=== PATIENT | female | born 2005 ===

== ENCOUNTER 2025-04-22 18:01 | Emergency (ER) | payer MEDICAID, SELFPAY ==
[2025-04-22 18:10] VITALS: BP 117/64; PULSE 61; RESP 18; TEMP 36.8; O2SAT 98; BMI 20.3
--- NOTE | 2025-04-22 18:26 | CRLHL7_ITS ---
For Patients: As a result of the Century Cures Act, medical imaging exams and procedure reports are released immediately into your electronic medical record. You may view this report before your referring provider. If you have questions, please contact your health care provider. Indication: Abdominal pain, constipation. Technique: Abdomen 3 view. Comparison: None. Findings/Impression: Bowel: Mild gaseous distention of the colon. No small bowel obstruction. Mild colonic stool burden most pronounced in the rectum. Soft tissues: No sign of free air. No sign of soft tissue mass. No suspicious calcifications. Bones: Unremarkable for age. Dictated by López Jimenez MD @ 04/22/2025 7:04:49 PM (Electronically Signed)
--- NOTE | 2025-04-22 18:30 | ED_ITS ---
HPI - Abdominal Pain General Date Seen: 04/22/25 Chief Complaint: Abdominal Pain Stated Complaint: stomach pain Time Seen by Provider: 04/22/25 18:04 Source: patient, family, RN notes reviewed and old records reviewed Mode of arrival: ambulatory Limitations: no limitations History of Present Illness HPI narrative: Patient is a very nice 19-year-old female who presents here with abdominal pain she has been struggling of abdominal pain on off the last 2 years, been evaluated at least 5 times down at the [place] [facility], along with other visits with her primary care physician. She has seen [facility] and had upper endoscopy. It has been told her that she may have irritable bowel syndrome, but she does does not think that is what is going on. She describes abdominal pain that comes and goes mostly when she walks around she currently in the emergency room does not have any abdominal pain at all. She describes also constipation associated with this and how a hard time passing stools in them being hard, she occasionally will use MiraLax for this. Does not have any blood in her stools, denies any nausea vomiting. There is no complaints of painful eating, or having worse pain with eating, she has not lost any weight there is no fevers chills, sweats, no personal history of malignancy, there is no relation to her periods, she has never had sexual intercourse, tells me there is no chance she can be . Further she has no history of dysuria but has of frequency urination. She does drink a lot a water. Pain is all over her abdomen, but characteristically more in the upper than the lower. She has tried Protonix proton pump inhibitors in the past with no improvement she does remember she has tried Levsin. She does use occasional MiraLax. I am able to review her workup in [facility]. Related Data Patient : No Previous Rx's ?Medication ?Instructions ?Recorded hyoscyamine sulfate 0.125 mg 0.125 mg PO BID-QID PRN d yspepsia 04/22/25 tablet (Levsin) #60 tabs Allergies Allergy/AdvReac Type Severity Reaction Status Date / Time No Known Drug Allergies Allergy Verified 04/22/25 18:13 Review of Systems Status of ROS Reports: 10 or more systems reviewed and unremarkable except as noted in History and below PFSH PFSH Social History Smoking Status: Never smoker Do you use any of these nicotine containing products: None Second hand tobacco smoke exposure: No How often do you have a drink containing alcohol: never How often do you have six or more drinks on one occasion: Never AUDIT-C Alcohol total score: 0 Non-prescribed substance use: denies use service: No Exam Narrative: Exam Narrative: On examination in room 2 she is pleasant alert she speaks excellent [place]. Her mother is with her, who speaks no [place]. I initially came in the room and they were praying. Pupils are equal round reactive to light there is no scleral icterus redness TMs are normal oropharynx normal her neck is supple full range of motion chest is clear bilaterally no wheezing crackles noted heart sounds are normal, her abdomen is soft and scaphoid there is no guarding no organomegaly bowel sounds are normal there is no tenderness to palpation she moves all extremities independently and well. Did not remove her clothing as she asked me not to. A adolescent psychiatrist was present, my nurse Sobia. Const: Vital Signs, click to edit/add: Vital Signs - 24 hr 04/22/25 18:10 Temperature 98.3 F Pulse Rate [Pulse Oximeter] 61 Respiratory Rate 18 Blood Pressure [Ri ght Upper Arm] 117/64 Pulse Oximetry 98 Oxygen Delivery Me thod Room Air Course Course ED Course: I reviewed with the patient her x-ray, lot a gas and constipation low down, no other worrisome findings, her urinalysis was benign test negative. That he be reasonable discharge her home, use MiraLax every day, follow-up with primary care consider using the Levsin which I prescribed for her, I explained to her that this is the chronic problem. Follow-up with primary care. Vital Signs Vital signs: Initial Vital Signs Temperature 98.3 F 04/22/25 18:10 Temperature Source Temporal Artery Scan 04/22/25 18:10 Pulse Rate 61 04/22/25 18:10 Pulse Rhythm Regular 04/22/25 18:10 Respiratory Rate 18 04/22/25 18:10 Blood Pressure 117/64 04/22/25 18:10 Blood Pressure Mean 81 04/22/25 18:10 Blood Pressure Position Sitting 04/22/25 18:10 Pulse Oximetry 98 04/22/25 18:10 Oxygen Delivery Method Room Air 04/22/25 18:10 Vital Signs Temperature 98.3 F 04/22/25 18:10 Pulse Rate 61 04/22/25 18:10 Respiratory Rate 18 04/22/25 18:10 Blood Pressure 117/64 04/22/25 18:10 Pulse Oximetry 98 04/22/25 18:10 Oxygen Delivery Method Room Air 04/22/25 18:10 Temperature 98.3 F 04/22/25 18:10 Pulse Rate 61 04/22/25 18:10 Respiratory Rate 18 04/22/25 18:10 Blood Pressure 117/64 04/22/25 18:10 Pulse Oximetry 98 04/22/25 18:10 Oxygen Delivery Method Room Air 04/22/25 18:10 MDM - Abdominal Pain MDM Narrative Medical decision making narrative: During the evaluation of this patient I considered multiple differential diagnosis including life-threatening differentials which are appendicitis, aortic aneurysm, mesenteric ischemia, bowel perforation, ectopic , volvulus and bowel obstruction, other differential diagnosis include but are not limited to inflammatory bowel disease, cholecystitis, pancreatitis, hepatitis, gastritis, GERD, diverticulitis, peptic ulcer disease, pyelonephritis/UTI, renal colic/stone, pelvic inflammatory disease, cervicitis, endometritis, intrauterine , dysfunctional uterine bleeding, ovarian cyst/torsion, spontaneous as well as other etiologies Medical Records Attestation: I reviewed the patient's medical records. Medical records narrative: I have read workup in the [facility], she has had upper endoscopy, she has had CT scans, ultrasounds, multiple x-rays, and multiple labs out of all been negative. Lab Data Labs: Lab Results 04/22/25 Range/Units 18:26 Urine Color Yellow (Yellow) Urine Appearance Clear (Clear) Urine pH 5.5 (5.0-8.5) Ur Specific [place] >= 1.030 (1.000-1.030) Urine Protein Trace A (Negative) Urine Glucose (UA) Negative (Negative) Urine Ketones 2+ A (Negative) Urine Blood Negative (Negative) Urine Nitrite Negative (Negative) Urine Bilirubin Negative (Negative) Urine Urobilinogen 0.2 (0.2-1.0) Ur Leukocyte Esterase Negative (Negative) Urine RBC 0-2 (0-2) Urine WBC 0-2 (0-5) Ur Squamous Epith Cells None (None-Few) Urine Bacteria None (None) Urine HCG, Qual Negative (Negative) Imaging Data Flat and upright abdominal for: Attestation: I have reviewed the pertinent imaging results. My impression: No acute findings lot a gas, constipation Discharge Plan Discharge Clinical Impression: Constipation, Irritable bowel syndrome (IBS) Patient Disposition: Home w/ Parent or Adult Instructions: Constipation (DC), Chronic Abdominal Pain (DC) Additional Instructions: Home rest, follow-up with primary care for ongoing signs symptoms, you have a lot a gas on your x-ray, and signs of constipation. MiraLax will help this. I did give a prescription for Levsin. Take this b.i.d. this helps the cramping. Activity Level: Light activity Discharge Diet: Regular Prescriptions: New hyoscyamine sulfate [Levsin] 0.125 mg tablet 0.125 mg PO BID-QID PRN (Reason: dyspepsia) Qty: 60 0RF Follow Up/Referrals: Provider,Not a Local [Primary Care Provider, Family Practice] Stand Alone Forms: WriteLatex Info Instructions
[2025-04-22 18:38] LABS: Appearance Urine Clear (Clear)
[2025-04-22 18:40] LABS: Ur HCG Qualitative* Negative (Negative)
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
== END 2025-04-22 19:09 | disposition home or self-care (01) ==
PROVIDERS: Emergency Provider Family Medicine
DX: K58.1 Irritable bowel syndrome with constipation (principal)
CPT/HCPCS: 74019; 81001; 81025; 99283; 99284

== ENCOUNTER 2025-06-22 19:54 | Emergency (ER) | payer MEDICAID, SELFPAY ==
--- OUTSIDE RECORDS SUMMARY | 2025-06-22 19:55 | XMS_ITS | Clinical Summary ---
Author Organization [facility] Address [address] [place] [id number] Care Team Providers Care Cable Splicer Name Role Phone Adria Gallegos MD Primary Care Provider Allergies No known active allergies Medications MedicationSigDispense QuantityRefillsLast FilledStart DateEnd DateStatus polyethylene glycoL 17 gram/scoop powder Indications:Constipation, acuteMix 1 scoop (17 g) in liquid then take by mouth once daily if needed for Constipation. 510 g 5Active hyoscyamine (LEVSIN) 0.125 mg tablet TAKE 1 TABLET BY MOUTH 2 TO 4 TIMES DAILY NEEDED FOR GVTLKRUDS75/24/2025 Active sennosides (SENNA) 8.6 mg tablet Indications:Abdominal pain, generalized,Chronic constipationTake 1 Tablet (8.6 mg) by mouth 2 times daily if needed for Constipation. 30 Tablet 5Active polyethylene glycoL (MIRALAX) 17 gram/scoop powder Indications:Abdominal pain, generalized,Chronic constipationMix 1 scoop (17 g) in liquid then take by mouth once daily. 510 g 5Active amoxicillin 875 mg tablet Indications:Non-recurrent acute serous otitis media of left earTake 1 Tablet (875 mg) by mouth every 12 hours. 14 Tablet 5Active pseudoephedrine (SUDAFED) 30 mg tablet Indications:Acute effusion of both middle ears,Nasal congestionTake 2 Tablets (60 mg) by mouth every 6 hours if needed for Nasal Congestion. 30 Tablet 5Active dicyclomine (BENTYL) 20 mg tablet Indications:Lower abdominal painTake 1 Tablet (20 mg) by mouth four times daily before meals and at bedtime. 20 Tablet 5Active rx ondansetron (ZOFRAN ODT) 4 mg orally disintegrating tablet (ED DC MED) Indications:Nausea and vomiting, unspecified vomiting typePlace 1 Tablet (4 mg) on the tongue every 8 hours if needed (nausea and vomiting). 4 Tablet 5Active ondansetron 4 mg disintegrating tablet Indications:Nausea and vomiting, unspecified vomiting typePlace 1 Tablet (4 mg) on the tongue every 8 hours if needed for Nausea/Vomiting. 10 Tablet /08/2024Discontinued(*Med complete/Regimen complete/Level of care change) ondansetron (ZOFRAN ODT) 4 mg disintegrating tablet Indications:Vomiting, unspecified vomiting type, unspecified whether nausea presentPlace 1 Tablet (4 mg) on the tongue every 8 hours if needed for Nausea/Vomiting. 15 Tablet /08/2024Discontinued(*Med complete/Regimen complete/Level of care change) rx ondansetron (ZOFRAN ODT) 4 mg orally disintegrating tablet (ED DC MED) Indications:Nausea and vomiting, unspecified vomiting typePlace 1 Tablet (4 mg) on the tongue every 8 hours if needed (nausea and vomiting). 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 Resolved Problems ProblemNoted DateDiagnosed DateResolved DateLeft foot pain Strain of left footSleep problem caused by drug09/20/2014 01/28/2018 Overview (09/20/2014): formal sleep consult recommended by neurology at [facility] [place] [place]/Adolfo Vitamin D muyxuagamq53Learning cejnexsbxq66 Encounters DateTypeDepartmentCare OfjdAukudzaoogu94/03/2025 1:34 AM TAKE AWAY MAN - 06/02/2025 2:59 AM [facility] [address] [place] [address] Carlos Kramer MD Nausea and vomiting, unspecified vomiting type (Primary Dx) Discharge Disposition: Home Self Care06/02/20256400Iommyr93/29/2025 3:16 PM TAKE AWAY MAN - 05/29/2025 4:21 PM [facility] [address] [place] [address] Zuly Vinson PA Lower abdominal pain (Primary Dx); S/P colonoscopy; Vomiting, unspecified vomiting type, unspecified whether nausea present Discharge Disposition: Home Self Care05/29/20253248Bkqkdc45/23/2025 11:31 PM TAKE AWAY MAN - 05/24/2025 1:03 AM [facility] [address] [place] [address] Baudilio Miguel MD Abdominal pain, unspecified abdominal location (Primary Dx); Tension headache Discharge Disposition: Home Self Care05/23/20259802Auolim41/06/2025 1:04 AM TAKE AWAY MAN - 05/06/2025 1:45 AM [facility] [address] [place] [address] Carlos Kramer MD Acute effusion of both middle ears (Primary Dx); Nasal congestion; Non-recurrent acute serous otitis media of left ear Discharge Disposition: Home Self Care05/06/20254278Gnfwyy97/28/2025 10:10 AM CDT Office [facility] [address] [facility] [place] [address] Adria Gallegos MD Hospital F/U (Seen in [facility] on 04/22/2025 for stomach pain.); Well Child (19 years)04/26/2025Telephone [facility] [address] [place] [address] Adria Gallegos MD Ccfbjoipm38/27/2025Travelfrom Last 3 Months Immunizations ImmunizationAdministration DatesNext DueAMB Influenza, IIV3 (Age >=3 years) Preserve Free (Flu Clinic Only)04/14/2013DTaP11/01/2010,05/04/20107529LSzQ-XitA-YWE (Pediarix)03/14/2010,09/07/2009HPV 9 (Gardasil 9)01/28/2018Hepatitis A (Peds) 09/11/2010,02/07/2010Hepatitis B (Peds)09/11/2010Inactivated Polio Vaccine 09/11/2010Influenza, IIV3 (Age 6-35 mos)04/14/2013Influenza, IIV3 (Age >=3 years)09/11/2010,05/04/2010MENINGOCOCCAL VACCINE 2 VIAL 2MO-55YO (MENVEO) 01/28/2018MMR02/07/2010,12/13/2007Oral Polio Wsnkmue8104/27/2009Tdap01/28/2018 Varicella Rmkncgc3505/04/2010,02/07/2010 Family History RelationNameStatusCommentsBrother 1AliveBrother 2AliveFatherAliveMaternal GrandfatherAliveMaternal GrandmotherDeceasedMotherAlivePaternal Grandfather DeceasedPaternal GrandmotherDeceasedSister 1AliveSister 2AliveSister 3Alive Social History Tobacco UseTypesPacks/DayYears UsedDateSmoking Tobacco: NeverSmokeless Tobacco: Never Tobacco Cessation:Counseling Given: Yes Alcohol UseStandard Drinks/WeekCommentsNever0 (1 standard drink = 0.6 oz pure alcohol)PHQ-2AnswerDate RecordedPHQ-2 TOTAL [id number] Connections AnswerDate RecordedDo you often feel lonely or isolated from those around you?0 09/25/2024lcohol UseAnswerDate RecordedHow often do you have a drink containing alcohol?verage Number of DrinksNot on file04/27/2025Frequency of Binge DrinkingNot on file04/27/2025Financial Resource StrainAnswerDate Recorded Difficulty of Paying Living Maambwjt314/28/2025Difficulty of Paying Living ExpensesNot on file09/25/2024Food InsecurityAnswerDate RecordedDo you worry your food will run out before you are able to buy more?Transportation NeedsAnswerDate RecordedDoes lack of transportation keep you from medical appointments?Does lack of transportation keep you from work, meetings or getting things that you need?Housing StabilityAnswerDate Recorded What is your housing situation today?Interpersonal SafetyAnswerDate RecordedAre you being hit, kicked, pushed or yelled at (see row info)?No 06/02/2025Interpersonal Safety Abuse 12 - 18Not on file06/02/2025Interpersonal Safety Ambulatory VulnerabilityNot on file06/02/2025UtilitiesAnswerDate Recorded Do you have trouble paying for utilities (for example, heat, electricity, water, phone)?CommentsNoSex and Gender InformationValueDate Recorded Sex Assigned at BirthNot on fileLegal FfiSzprjw74/14/2013 8:37 AM CSTGender IdentityNot on fileSexual OrientationNot on fileOccupationIndustryJob Start Date Job End DatestudentNot on fileNot on fileNot on file Obstetrics History GravidaParaTermPretermABIABSABEctopicMultipleLivingLive [id number] Last Filed Vital Signs Vital SignReadingTime TakenCommentsBlood Cexmgebf257/5906/02/2025 2:53 AM TAKE AWAY MAN Tagtr5211 2:53 AM CGPAdjqcpzdlvg45.1 ??C (98.8 ??F)06/02/2025 1:39 AM CSTRespiratory Birm865608/03/2024 1:39 AM CSTOxygen Lqmfadscru46%06/02/2025 2:53 AM CSTInhaled Oxygen Concentration--Vosqza79 kg (119 lb)06/02/2025 1:40 AM TAKE AWAY MAN Rqxwzw974 cm (5' 3)06/02/2025 1:40 AM CSTBody Mass Index21.0806/02/2025 1:40 AM TAKE AWAY MAN Plan of Treatment DateTypeDepartmentCare Team (Latest Contact Info)Nsexuppkhib20/31/2025 7:55 AM CSTOffice Visit [facility] [address] [place] [address] Finesse Morrison PA [address] [place] [address] Health MaintenanceDue DateLast DoneCommentsHPV series for age 9-45 (2 - 2-dose series)HIV for age 15-Meningococcal series for age 11-21 (2 - 2-dose series)Hepatitis C screening for age 18-Well Child Check for age 3-, 01/28/2018, 08/03/2014, Additional history existsCOVID-19 vaccine series ( season)2025Influenza Vaccine (#1), 04/14/2013, 09/11/2010, Additional history existsBMI (ht and wt on same day) for age 18+ , 02/05/2024, 3Depression screening for age 12+ , 02/05/2024, 09/26/2022, Additional history existsTetanus knejggq95/31/724124/31/2018Hepatitis B series for 19+Pztrzxgiu75/14/2011, 03/14/2010, 09/07/2009Pneumococcal series for age 6-49Aged OutNo longer eligible based on patient's age to complete this topic Procedures Procedure NamePriorityDate/TimeAssociated DiagnosisCommentsEXTRA TUBE LIGHT XZDHVIwrvt63/03/2025 2:33 AM CSTEXTRA TUBE SDBWDyjdd63/03/2025 2:33 AM CSTEXTRA TUBE BFBTYanwd48/03/2025 2:33 AM CSTPREGNANCY,SERUM SDLZBQSJAOYDXUV51/03/2025 2:33 AM TAKE AWAY MAN CBC W PLT NO XLJRYGPI84/03/2025 2:33 AM TAKE AWAY MAN CBC WITH AUTO IPZBGWYZBTGIOGJU25/29/2025 3:28 PM TAKE AWAY MAN IXTCBNWMMY70/29/2025 3:28 PM TAKE AWAY MAN HEPATIC FUNCTION JHYUSOKGN16/29/2025 3:28 PM TAKE AWAY MAN BASIC METABOLIC INOOFMYBD24/29/2025 3:28 PM TAKE AWAY MAN CBC WITH AUTO NTQYAOVLGFXVNBMW92/29/2025 3:28 PM TAKE AWAY MAN JXBLIOCAS60/29/2025 2:21 PM TAKE AWAY MAN URINALYSIS EJMBNPOSNSSKTQS68/29/2025 2:21 PM TAKE AWAY MAN UA W/ SEDIMENT EXAM REFLEXED PER GATYRWRSFRJG53/29/2025 2:21 PM TAKE AWAY MAN SCAN-MSNMLSUBYJZ60/25/2025 2:00 PM TAKE AWAY MAN PNSRURDFH68/24/2025 12:04 AM TAKE AWAY MAN UA W/ SEDIMENT EXAM REFLEXED PER OLWGAJEASJER40/24/2025 12:04 AM TAKE AWAY MAN EXTRA TUBE LIGHT XKXRZDbymo33/23/2025 11:58 PM CSTEXTRA TUBE ECDREiztv06/23/2025 11:58 PM CSTEXTRA TUBE OVUSCrkhf21/23/2025 11:58 PM CSTCOMP METABOLIC PANELSTAT 05/23/2025 11:58 PM TAKE AWAY MAN CBC W PLT NO BZRMIUYP86/23/2025 11:58 PM TAKE AWAY MAN AMB CONSULT TO WYBHIPINLMZZFENLPuwpdzf05/29/2025 8:31 PM CDTfrom Last 3 Months Results * EXTRA TUBE LIGHT GREEN (06/02/2025 2:33 AM TAKE AWAY MAN) Only the most recent of2 resultswithin the time period is included. Specimen (Source)Anatomical Location / LateralityCollection Method / Volume Collection TimeReceived TimeBloodBLOOD SPECIMEN / UnknownButterfly / Unknown 06/02/2025 2:33 AM CST06/02/2025 2:39 AM TAKE AWAY MAN Narrative Authorizing ProviderResult TypeResult StatusCarlos Kramer MDLABORATORY Final ResultPerforming OrganizationAddressCity/State/ZIP CodePhone Number [facility] [address] [place] [phone] * EXTRA TUBE CHAUHAN (06/02/2025 2:33 AM TAKE AWAY MAN) Only the most recent of2 resultswithin the time period is included. Specimen (Source)Anatomical Location / LateralityCollection Method / Volume Collection TimeReceived TimeBloodBLOOD SPECIMEN / UnknownButterfly / Unknown 06/02/2025 2:33 AM CST06/02/2025 2:39 AM TAKE AWAY MAN Narrative Authorizing ProviderResult TypeResult StatusCarlos Kramer MDLABORATORY Final ResultPerforming OrganizationAddressCity/State/ZIP CodePhone Number [facility] [address] [place] [phone] * EXTRA TUBE BLUE (06/02/2025 2:33 AM TAKE AWAY MAN) Only the most recent of2 resultswithin the time period is included. Specimen (Source)Anatomical Location / LateralityCollection Method / Volume Collection TimeReceived TimeBloodBLOOD SPECIMEN / UnknownButterfly / Unknown 06/02/2025 2:33 AM CST06/02/2025 2:39 AM TAKE AWAY MAN Narrative Authorizing ProviderResult TypeResult StatusCarlos Kramer MDLABORATORY Final ResultPerforming OrganizationAddressCity/State/ZIP CodePhone Number [facility] [address] [place] [address] * ,SERUM QUALITATIVE (06/02/2025 2:33 AM TAKE AWAY MAN)ComponentValueRef Range Test MethodAnalysis TimePerformed AtPathologist SignaturePREGNANCY,SERUM YmzyzrpiZoqqvxbh05/03/2025 2:48 AM [facility] Specimen (Source)Anatomical Location / LateralityCollection Method / Volume Collection TimeReceived TimeBloodBLOOD SPECIMEN / UnknownButterfly / Unknown 06/02/2025 2:33 AM CST06/02/2025 2:36 AM TAKE AWAY MAN Narrative Authorizing ProviderResult TypeResult StatusCarlos Kramer MDCHEMISTRY Final ResultPerforming OrganizationAddressCity/State/ZIP CodePhone Number [facility] [address] [place] [address] * (ABNORMAL) CBC W PLT NO DIFF (06/02/2025 2:33 AM TAKE AWAY MAN) Only the most recent of2 resultswithin the time period is included. ComponentValueRef RangeTest MethodAnalysis TimePerformed AtPathologist Signature WHITE BLOOD COUNT7.04.5 - 11.0 thou/cu mm06/02/2025 2:40 AM [facility] LABORATORYRED BLOOD COUNT3.94(L)4.00 - 5.20 mil/cu mm06/02/2025 2:40 AM [facility] LCXMXVOJDQSWTCQCRATW56.7(L)12.0 - 16.0 g/dL 06/02/2025 2:40 AM [facility] ILTZDENHXEHUSIWCFFPH74.933.0 - 51.0 %06/02/2025 2:40 AM [facility] JKCKGAZDWCPIF8392 - 100 fL 06/02/2025 2:40 AM [facility] NYBJGKSIOQSNX94.226.0 - 34.0 pg 06/02/2025 2:40 AM [facility] ZNUWVBQDLSHVRC19.6(L)32.0 - 36.0 g/dL06/02/2025 2:40 AM [facility] IDYVQHJWHDPMS20.311.5 - 15.5 %06/02/2025 2:40 AM [facility] LABORATORYPLATELET ZSZDV686536 - 440 thou/cu mm06/02/2025 2:40 AM [facility] BSBTQDQPCCEIH87.6 (H)6.5 - 11.0 fL06/02/2025 2:40 AM [facility] Specimen (Source)Anatomical Location / LateralityCollection Method / Volume Collection TimeReceived TimeBloodBLOOD SPECIMEN / UnknownButterfly / Unknown 06/02/2025 2:33 AM CST06/02/2025 2:36 AM TAKE AWAY MAN Narrative Authorizing ProviderResult TypeResult StatusNathanbessy Kramer MDHEMATOLOGY Final ResultPerforming OrganizationAddressCity/State/ZIP CodePhone Number [facility] [address] [place] [address] * (ABNORMAL) CBC WITH AUTO DIFFERENTIAL (05/29/2025 3:28 PM TAKE AWAY MAN)ComponentValue Ref RangeTest MethodAnalysis TimePerformed AtPathologist SignatureWHITE BLOOD COUNT6.14.5 - 11.0 thou/cu mm05/29/2025 3:34 PM [facility] LABORATORYRED BLOOD COUNT4.344.00 - 5.20 mil/cu mm05/29/2025 3:34 PM [facility] REZIKPEHOGEIVFFARTII09.8(L)12.0 - 16.0 g/dL05/29/2025 3:34 PM [facility] CVMOGJTKCGEYPZRPDOJM97.533.0 - 51.0 % 05/29/2025 3:34 PM [facility] YMGSRYYVVSXIC6471 - 100 fL 05/29/2025 3:34 PM [facility] GVKIZIPTXWFKR49.226.0 - 34.0 pg 05/29/2025 3:34 PM [facility] BTPCFZFMGKAKTX76.5(L)32.0 - 36.0 g/dL05/29/2025 3:34 PM [facility] ILNYJQKAUNMKE06.711.5 - 15.5 %05/29/2025 3:34 PM [facility] LABORATORYPLATELET VSMCX746721 - 440 thou/cu mm05/29/2025 3:34 PM [facility] BAWHSOFIPLJDR71.3(H)6.5 - 11.0 fL05/29/2025 3:34 PM [facility]% NEUT56.7%05/29/2025 3:34 PM [facility]% LYMPH31.4%05/29/2025 3:34 PM [facility]% MONO10.5%05/29/2025 3:34 PM [facility] % EOS1.1%05/29/2025 3:34 PM [facility]% BASO0.3% 05/29/2025 3:34 PM [facility] LABORATORYABSOLUTE NEUTROPHILS 3.51.7 - 7.0 thou/cu 05/29/2025 3:34 PM [facility] LABORATORYABSOLUTE LYMPHOCYTES1.90.9 - 2.9 thou/cu 05/29/2025 3:34 PM [facility] LABORATORYABSOLUTE MONOCYTES0.6<0.9 thou/cu mm 05/29/2025 3:34 PM [facility] LABORATORYABSOLUTE EOSINOPHILS 0.1<0.5 thou/cu 05/29/2025 3:34 PM [facility] ABSOLUTE BASOPHILS0.0<0.3 thou/cu 05/29/2025 3:34 PM [facility] LABORATORYSpecimen (Source)Anatomical Location / LateralityCollection Method / VolumeCollection TimeReceived TimeBloodBLOOD SPECIMEN / Unknown Venipuncture / Kwzkcsb7505/29/2025 3:28 PM [facility]05/29/2025 3:30 PM TAKE AWAY MAN Narrative Authorizing ProviderResult TypeResult StatusAyla Monique MART HEMATOLOGYFinal ResultPerforming OrganizationAddressCity/State/ZIP CodePhone Number [facility] [address] [place] [address] * LIPASE (05/29/2025 3:28 PM TAKE AWAY MAN)ComponentValueRef RangeTest MethodAnalysis Time Performed AtPathologist QruyctvkoRMCLTM69.113.0 - 60.0 IU/L107/29/2024 3:52 PM [facility] LABORATORYSpecimen (Source)Anatomical Location / LateralityCollection Method / VolumeCollection TimeReceived TimeBloodBLOOD SPECIMEN / UnknownVenipuncture / Wukqmkk5905/29/2025 3:28 PM CST05/29/2025 3:30 PM TAKE AWAY MAN Narrative Authorizing ProviderResult TypeResult StatusZuly MART CHEMISTRYFinal ResultPerforming OrganizationAddressCity/State/ZIP CodePhone Number [facility] [address] [place] [address] * (ABNORMAL) HEPATIC FUNCTION PANEL (05/29/2025 3:28 PM TAKE AWAY MAN)ComponentValueRef RangeTest MethodAnalysis TimePerformed AtPathologist SignatureALBUMIN4.54.0 - 4.9 g/dL05/29/2025 3:52 PM [facility] LABORATORYPROTEIN,TOTAL 7.56.0 - 8.0 g/dL05/29/2025 3:52 PM [facility] BILIRUBIN,TOTAL0.60.0 - 1.2 mg/dL05/29/2025 3:52 PM [facility] LABORATORYBILIRUBIN,DIRECT0.3(H)0.0 - 0.2 mg/dL05/29/2025 3:52 PM [facility] LABORATORYBILIRUBIN,INDIRECT0.30.2 - 0.8 mg/dL 05/29/2025 3:52 PM [facility] LABORATORYALK PUCJAEEMQMU2915 - 104 IU/L107/29/2024 3:52 PM [facility] LABORATORYALT (SGPT)22 10 - 35 IU/L107/29/2024 3:52 PM [facility] LABORATORYAST (SGOT)3110 - 35 IU/L107/29/2024 3:52 PM [facility] Specimen (Source)Anatomical Location / LateralityCollection Method / Volume Collection TimeReceived TimeBloodBLOOD SPECIMEN / UnknownVenipuncture / Zuzwhzj7705/29/2025 3:28 PM CST05/29/2025 3:30 PM TAKE AWAY MAN Narrative Authorizing ProviderResult TypeResult StatusZuly Larsen PA CHEMISTRYFinal ResultPerforming OrganizationAddressCity/State/ZIP CodePhone Number [facility] [address] [place] [address] * BASIC METABOLIC PANEL (05/29/2025 3:28 PM TAKE AWAY MAN)ComponentValueRef RangeTest MethodAnalysis TimePerformed AtPathologist TpcsuzmcxWIBLMU206995 - 145 mmol/L 05/29/2025 3:52 PM [facility] LABORATORYPOTASSIUM3.63.5 - 5.1 mmol/L107/29/2024 3:52 PM [facility] JCZUILOWZDYQHXIBEL34648 - 107 mmol/L107/29/2024 3:52 PM [facility] LABORATORYCO2,TOTAL23 22 - 29 mmol/L107/29/2024 3:52 PM [facility] LABORATORYANION AMR668 - 18107/29/2024 3:52 PM [facility] YTGTBVSPNDATPRZNC88 70 - 99 mg/dL05/29/2025 3:52 PM [facility] LABORATORYCALCIUM 9.38.8 - 10.4 mg/dL05/29/2025 3:52 PM [facility] Comment: Reference ranges for this test were updated on 05/05/2024 to reflect our healthy population more accurately. Reference range changes are not retroactively applied to results, but previous results using the same methodology can be interpreted in the context of the new reference range. BUN96 - 20 mg/dL05/29/2025 3:52 PM [facility] CREATININE0.640.50 - 0.90 mg/dL05/29/2025 3:52 PM [facility] LABORATORYBUN/CREAT ABGRI8619 - 3:52 PM [facility] LABORATORYeGFR>90>90 mL/min/1.67w27805/29/2025 3:52 PM [facility] LABORATORYComment:As of 09/12/2021, eGFR is calculated by the CKD-EPI creatinine equation without race adjustment. ??eGFR can be influenced by muscle mass, exercise, and diet. ??The reported eGFR is an estimation onlyand is only applicable if the renal function is stable.Specimen (Source)Anatomical Location / LateralityCollection Method / VolumeCollection TimeReceived TimeBloodBLOOD SPECIMEN / UnknownVenipuncture / Sbiyeoc2505/29/2025 3:28 PM CST05/29/2025 3:30 PM TAKE AWAY MAN Narrative Authorizing ProviderResult TypeResult StatusZuly MART CHEMISTRYFinal ResultPerforming OrganizationAddressCity/State/ZIP CodePhone Number [facility] [address] [place] [address] * (ABNORMAL) URINALYSIS MICROSCOPIC (05/29/2025 2:21 PM TAKE AWAY MAN)ComponentValueRef RangeTest MethodAnalysis TimePerformed AtPathologist HwyyavpiyLHR8-20-6, None Seen /HPF05/29/2025 2:31 PM [facility] GREPTXYVMGPVZ4-53-7, 3-5, None Seen /HPF05/29/2025 2:31 PM [facility] BACTERIAModerate(A)None Seen, Rare, Few Bacteria/HPF05/29/2025 2:31 PM [facility] LABORATORYEPITHELIAL CELLSFewNone Seen, Few Epi/HPF 05/29/2025 2:31 PM [facility] LABORATORYMucusPresent 05/29/2025 2:31 PM [facility] LABORATORYSpecimen (Source) Anatomical Location / LateralityCollection Method / VolumeCollection Time Received TimeUrineURINE SPECIMEN / UnknownNon-Blood / Zwanjnd2005/29/2025 2:21 PM CST05/29/2025 2:24 PM TAKE AWAY MAN Narrative Authorizing ProviderResult TypeResult StatusZuly MARTURINE Final ResultPerforming OrganizationAddressCity/State/ZIP CodePhone Number [facility] [address] [place] [address] * (ABNORMAL) UA W/ SEDIMENT EXAM REFLEXED PER CRITERIA (05/29/2025 2:21 PM TAKE AWAY MAN) Only the most recent of2 resultswithin the time period is included. ComponentValueRef RangeTest MethodAnalysis TimePerformed AtPathologist Signature COLORYellowYellow Color05/29/2025 2:27 PM [facility] CLARITYClearClear Vpiqdqb5505/29/2025 2:27 PM [facility] LABORATORYSPECIFIC GRAVITY,URINE1.0151.010, 1.015, 1.020, 1.1321605/29/2025 2:27 PM [facility] LABORATORYPH,URINE7.56.0, 7.0, 8.0, 5.5, 6.5, 7.5, 8. 2:27 PM [facility] UROBILINOGEN,QUALITATIVENormalNormal EU/dl05/29/2025 2:27 PM [facility] LABORATORYPROTEIN, URINENegativeNegative mg/dL05/29/2025 2:27 PM [facility] LABORATORYGLUCOSE, URINENegativeNegative mg/dL 05/29/2025 2:27 PM [facility] LABORATORYKETONES,URINENegative Negative mg/dL05/29/2025 2:27 PM [facility] BILIRUBIN,WJMVCJbnwfgqqOyovhftv15/29/2025 2:27 PM [facility] LABORATORYOCCULT BLOOD,URINETrace(A)Yzzgdppa59/29/2025 2:27 PM [facility] PZFGJEWUJRRFCCACCQnccfkbaArcgmdwn30/29/2025 2:27 PM [facility] LABORATORYLEUKOCYTE NPYLRDJPRbzzweigHxkpvboj20/29/2025 2:27 PM [facility] LABORATORYSpecimen (Source)Anatomical Location / LateralityCollection Method / VolumeCollection TimeReceived TimeUrineURINE SPECIMEN / UnknownNon-Blood / Tadwdui6705/29/2025 2:21 PM CST05/29/2025 2:24 PM TAKE AWAY MAN Narrative Authorizing ProviderResult TypeResult StatusAyla Monique MARTURINE Final ResultPerforming OrganizationAddressCity/State/ZIP CodePhone Number [facility] [address] [place] [address] * URINE (05/29/2025 2:21 PM TAKE AWAY MAN) Only the most recent of2 resultswithin the time period is included. ComponentValueRef RangeTest MethodAnalysis TimePerformed AtPathologist Signature ,EHCGMGtgibwrrLeqhwysn81/29/2025 3:21 PM [facility] LAB[facility]ATORYSpecimen (Source)Anatomical Location / LateralityCollection Method / VolumeCollection TimeReceived TimeUrineURINE SPECIMEN / UnknownNon-Blood / Skxkezk2605/29/2025 2:21 PM CST05/29/2025 2:24 PM [employer] Narrative Authorizing ProviderResult TypeResult StatusAyla Monique Larsen HEMANT Final ResultPerforming OrganizationAddressCity/State/ZIP CodePhone Number [facility] [address] [place] [address] * SCAN-COLONOSCOPY (05/25/2025 2:00 PM [employer]) Narrative Procedure Note Bryce Deutsch MD - 05/25/2025 1:16 PM CST [facility] [address], [address], [place] [address] Patient Name: Zack Roman Gender: Female Exam Date: 05/25/2025 Visit Number: [id number] Age: 19 Years 7 Months Date of : 2005 Attending MD: Bryce Deutsch MD Medical Record#: [id number] Procedure: Colonoscopy Indications: Constipation Abdominal pain Referring MD: Referral Self Primary MD: Adria Gallegos MD Medications: Admitting Medications: 0.9% Normal Saline at TKO Intra Procedure Medications: Patient received monitored anesthesia care. Complications: No immediate complications Procedure: An examination of the heart and lungs was performed and found to be within acceptable limits. The patient was therefore deemed a reasonablecandidate for endoscopy and monitored anesthesia care. The risks, benefits and plan of the procedure were discussed with thepatient and/or patient practice representative and all questions were answered. After obtaining informed consent, the patient received monitoredanesthesia care and I passed the scope without difficulty via the rectum to the ileum. The appendiceal orifice and ic valve were identified. The scope wasretroflexed during the examination The quality of the prep was good(Miralax/Gatorade/2 tablets Bisacodyl/Magnesium Citrate). This was a complete examination throughout the entire colon. Findings: ?? Normal finding. Location - ileum. ?? The entire colon was normal. Impression: Constipation, unspecified constipation type Plan Repeat colonoscopy at age 44. We will attempt to contact you at appropriate intervals via [place] mail. Wemay not be able to find you or contact you at that time, therefore youshould know that the responsibility for following our recommendation restswith you. If you don't hear from us at the time your procedure is due,please contact our office to schedule an appointment. If your contactinformation should change, please contact our office so that we can updateyour records. Electronically signed by: Bryce Deutsch MD 05/25/2025 Medications: Medication Dose Sig Description PRN Status PRN Reason Comments Levsin 0.125 mg tablet 0.125 mg take 1 tablet by oral route 3 times everyday for 30 days as needed N taking as directed Miralax 17 gram/dose oral powder 17 gram/dose take 1 capful by ORAL routeevery day for 30 days powder mixed with 8 oz. water, juice, soda, coffee,or tea as needed Y taking as directed senna 8.6 mg tablet 8.6 mg take 1 Tablet by oral route every day asneeded Y taking as directed Allergies: Medication Name Ingredient Reaction Comment NO KNOWN ALLERGIES Vital Signs: Date Time Systolic Diastolic Height Weight BMI 05/25/2025 146 PM 131 62 63 in 115.50 20.50 Race: Black Or Preferred Language: Ivorian cc: Adria Gallegos MD [facility] [phone] Authorizing ProviderResult TypeResult StatusWerajan Deutsch MDOTHERFinal Result * (ABNORMAL) COMP METABOLIC PANEL (05/23/2025 11:58 PM [facility] [facility])ComponentValueRef RangeTest MethodAnalysis TimePerformed AtPathologist [id number] - 145 mmol/L107/24/2024 12:30 AM [facility]ATORYPOTASSIUM 3.83.5 - 5.1 mmol/L107/24/2024 12:30 AM [facility] [id number] - 107 mmol/L107/24/2024 12:30 AM [facility] LABORATORYCO2,PERZY4436 - 29 mmol/L107/24/2024 12:30 AM [facility] LABORATORYANION GAP85 - 18107/24/2024 12:30 AM [facility] DOKSTROBBNZLEFZIY2332 - 99 mg/dL05/24/2025 12:30 AM [facility] LABORATORYCALCIUM9.58.8 - 10.4 mg/dL05/24/2025 12:30 AM [facility] LABORATORYComment: Reference ranges for this test were updated on 05/05/2024 to reflect our healthy population more accurately. Reference range changes are not retroactively applied to results, but previous results using the same methodology can be interpreted in the context of the new reference range. NBC758 - 20 mg/dL05/24/2025 12:30 AM [facility] CREATININE0.620.50 - 0.90 mg/dL05/24/2025 12:30 AM [facility] LABORATORYBUN/CREAT PTPTE6277 - 12:30 AM [facility] LABORATORYeGFR>90>90 mL/min/1.13r11205/24/2025 12:30 AM [facility] LABORATORYComment:As of 09/12/2021, eGFR is calculated by the CKD-EPI creatinine equation without race adjustment. ??eGFR can be influenced by muscle mass, exercise, and diet. ??The reported eGFR is an estimation onlyand is only applicable if the renal function is stable.ALBUMIN4.34.0 - 4.9 g/dL 05/24/2025 12:30 AM [facility] LABORATORYPROTEIN,TOTAL7.26.0 - 8.0 g/dL05/24/2025 12:30 AM [facility] BILIRUBIN,TOTAL0.70.0 - 1.2 mg/dL05/24/2025 12:30 AM [facility] LABORATORYALK [id number] - 104 IU/L107/24/2024 12:30 AM [facility] LABORATORYALT (SGPT)8(L)10 - 35 IU/L107/24/2024 12:30 AM [facility]ORATORYAST (SGOT)1810 - 35 IU/L107/24/2024 12:30 AM TAKE AWAY MAN [facility] LABORATORYSpecimen (Source)Anatomical Location / LateralityCollection Method / VolumeCollection TimeReceived TimeBloodBLOOD SPECIMEN / UnknownVenipuncture / Fljkega9205/23/2025 11:58 PM CST05/24/2025 12:01 AM [facility] Narrative Authorizing ProviderResult TypeResult StatusRenzhong Ran MDCHEMISTRYFinal Result Performing OrganizationAddressCity/State/ZIP CodePhone Number [facility] [address] [place] [address] from Last 3 Months Insurance * Guarantor: Zack Romanccab TypeRelation to PatientDate of BirthPhone Billing AddressPersonal/EcdpsvDxyh64/30/2006 [phone] [place] [address] * Guarantor: Oh Zurita TypeRelation to PatientDate of BirthPhone Billing AddressPersonal/VtsmnnGnixpa52/01/1972 [phone] [place] [address] * Guarantor: Oh Zurita TypeRelation to PatientDate of BirthPhone Billing AddressPersonal/LxonqsMmvvlror79/01/1972 [phone] [place] [address] * Guarantor: Rosemary ZURITA TypeRelation to PatientDate of BirthPhone Billing AddressMotor WhlpshkBedtxl91/01/1972 [address] [place] [address] * Guarantor: Rosemary ZURITA TypeRelation to PatientDate of BirthPhone Billing AddressPersonal/FamilyFather * Guarantor: Zack Roman TypeRelation to PatientDate of BirthPhone Billing AddressWorkers VjxlLbyv53/30[birth year][phone] [place] [address] Care Teams Team MemberRelationshipSpecialtyStart DateEnd Date Adria Gallegos MD [address] [place] [address] PCP - GeneralFamily Rullggak65/27/25
[2025-06-22 20:27] VITALS: BP 123/76; PULSE 88; RESP 18; TEMP 37.1; O2SAT 99; BMI 20.7
--- NOTE | 2025-06-22 22:21 | ED.GENADULT ---
HPI - General Adult General Chief complaint: Extremity Pain/Injury, Lower Stated complaint: L foot pain Time Seen by Provider: 06/22/25 22:20 History of Present Illness HPI narrative: Left leg pain since yesterday - hard to walk i could feel my bones Heated and iced it yesterday?took ibuprofen as well Able to walk into triage, no limp Per patient able to push and no pain?pain is only when walking No injury to area, fractured ankle years ago 19-year-old young woman presenting to the emergency department with complaint of left foot maybe more specifically ankle area pain Notes remote fracture in the left foot. Wear safety shoes and spends lot of time on her feet at work. Extension of the ankle earlier today really seem to exacerbate her pain. Has not noticed particular swelling. Describes most pain deep in the medial aspect of the ankle generally. Seemed to start or flare 3 days ago and then got little bit better and then flared again today. She was feeling good this morning actually but once got to work just pain a exacerbated markedly. Related Data Previous Rx's ?Medication ?Instructions ?Recorded hyoscyamine sulfate 0.125 mg 0.125 mg PO BID-QID PRN dyspepsia 04/22/25 tablet (Levsin) #60 tabs meloxicam 7.5 mg tablet 7.5 mg PO DAILY #15 tabs 06/23/25 Allergies Allergy/AdvReac Type Severity Reaction Status Date / Time No Known Drug Allergies Allergy Verified 06/22/25 20:35 Review of Systems Status of ROS: Reports: 6 or more systems reviewed and unremarkable except as noted in History and below PFSH PFS Social History Smoking Status: Never smoker Do you use any of these nicotine containing products: None Second hand tobacco smoke exposure: No How often do you have a drink containing alcohol: never How often do you have six or more drinks on one occasion: Never AUDIT-C Alcohol total score: 0 Non-prescribed substance use: denies use service: No Exam Narrative: Exam Narrative: Pleasant. NAD. Pain seems most elicited to deep palpation slightly superior and medial to the medial malleolus of the left ankle. No plantar pain. I do not appreciate swelling or bruising about the foot or ankle. No defect to the Achilles. No tenderness inflammation specifically or appreciable defect. No base of 5th metatarsal pain or pain specifically at the navicular. No laxity to varus or valgus stressors of the ankle Const: Vital Signs, click to edit/add: Vital Signs - 24 hr 06/22/25 20:27 Temperature 98.8 F Pulse Rate [Pulse Oximeter] 88 Respiratory Rate 18 Blood Pressure [Ri ght Upper Arm] 123/76 Pulse Oximetry 99 Oxygen Delivery Me thod Room Air Documenting provider has reviewed patient's vital signs: yes Course Vital Signs Vital signs: Initial Vital Signs Temperature 98.8 F 06/22/25 20:27 Temperature Source Temporal Artery Scan 06/22/25 20:27 Pulse Rate 88 06/22/25 20:27 Respiratory Rate 18 06/22/25 20:27 Blood Pressure 123/76 06/22/25 20:27 Blood Pressure Mean 91 06/22/25 20:27 Blood Pressure Position Sitting 06/22/25 20:27 Pulse Oximetry 99 06/22/25 20:27 Oxygen Delivery Method Room Air 06/22/25 20:27 Vital Signs Temperature 98.8 F 06/22/25 20:27 Pulse Rate 88 06/22/25 20:27 Respiratory Rate 18 06/22/25 20:27 Blood Pressure 123/76 06/22/25 20:27 Pulse Oximetry 99 06/22/25 20:27 Oxygen Delivery Method Room Air 06/22/25 20:27 Temperature 98.8 F 06/23/25 00:46 Pulse Rate 81 06/23/25 00:46 Respiratory Rate 18 06/23/25 00:46 Blood Pressure 118/74 06/23/25 00:46 Pulse Oximetry 99 06/23/25 00:46 Oxygen Delivery Method Room Air 06/23/25 00:46 Medical Decision Making MDM Narrative Medical decision making narrative: Simply might be experiencing osteoarthritic pain in the ankle. I do not appreciate an effusion. Might be occult fracture or bony mass. I think is reasonable to start with standard x-ray. Three-view ankle x-ray independently reviewed by me is with Rather narrow joint space between the talus and the calcaneus. I do not appreciate any acute bony abnormality. radiology over-read noting signs of talocalcaneal coalition. Indication: Medial ankle pain. Technique: Left ankle 3 views. Comparison: None. Findings: Bones: Continuous C sign, compatible with talocalcaneal coalition. No acute fracture. Alignment is normal. No aggressive osseous lesion. Joint spaces: Unremarkable. Soft tissues: Unremarkable. 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 No acute bony abnormality. Dictated by Ovidio Rivas MD @ 06/22/2025 11:29:37 PM Discussed this potential with Zack she is requesting work note See patient discharge plan for further discussion I do think that icing is still helpful when pain flare(s). Like those clot(h) covered pleated ice packs with a screwtop lid. Fill with a tray of ice water and hold on with this Gilles wrap. Over this next week you can take ibuprofen 4 mg 2 - 3 times daily maybe with a little food or alternatively to 500 mg of naproxen twice daily. Both of these of course are available [id number]. I have otherwise sent in a prescription of meloxicam to your pharmacy if you prefer this medication. Would like you to make a follow-up appointment with Orthopedics (call phone number [phone]) to discuss further cares which might include physical therapy. I think you might also benefit from proper insoles for your shoes. Consider [employer]LE brand or Superfeet. Work note also written. Medical Records Medical records reviewed: Yes I reviewed the patient's medical records Discharge Plan Discharge Clinical Impression: Ankle pain, left, Coalition, talocalcaneal Patient Disposition: Home w/ Parent or Adult Condition: Stable Additional Instructions: I do think that icing is still helpful when pain flare(s). Like those clot(h) covered pleated ice packs with a screwtop lid. Fill with a tray of ice water and hold on with this Gilles wrap. Over this next week you can take ibuprofen 4 mg 2 - 3 times daily maybe with a little food or alternatively to 500 mg of naproxen twice daily. Both of these of course are available [id number]. I have otherwise sent in a prescription of meloxicam to your pharmacy if you prefer this medication. Would like you to make a follow-up appointment with Orthopedics (call phone number [phone]) to discuss further cares which might include physical therapy. I think you might also benefit from proper insoles for your shoes. Consider SOLE brand or Superfeet. Work note also written. Prescriptions: New meloxicam 7.5 mg tablet 7.5 mg PO DAILY Qty: 15 1RF No Action hyoscyamine sulfate [Levsin] 0.125 mg tablet 0.125 mg PO BID-QID PRN (Reason: dyspepsia) Qty: 60 0RF Follow Up/Referrals: Provider,Not a Local [Non-Staff, Family Practice] Stand Alone Forms: MyHealth Info Instructions
--- NOTE | 2025-06-22 22:33 | CRLHL7_ITS ---
For Patients: As a result of the Century Cures Act, medical imaging exams and procedure reports are released immediately into your electronic medical record. You may view this report before your referring provider. If you have questions, please contact your health care provider. Indication: Medial ankle pain. Technique: Left ankle 3 views. Comparison: None. Findings: Bones: Continuous C sign, compatible with talocalcaneal coalition. No acute fracture. Alignment is normal. No aggressive osseous lesion. Joint spaces: Unremarkable. Soft tissues: Unremarkable. 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 No acute bony abnormality. Dictated by Ovidio Rivas MD @ 06/22/2025 11:29:37 PM (Electronically Signed)
[2025-06-23 00:46] VITALS: BP 118/74; PULSE 81; RESP 18; TEMP 37.1; O2SAT 99
== END 2025-06-23 00:46 | disposition home or self-care (01) ==
PROVIDERS: Emergency Provider Family Medicine; PCP Family Medicine
DX: M25.572 Pain in left ankle and joints of left foot (principal); Q66.89 Other specified congenital deformities of feet
CPT/HCPCS: 73610; 99284